=== PATIENT | female | born 1975 | race Hispanic/Latino ===

== ENCOUNTER → 2024-02-29 | Day surgery (SDC) | payer BC ==
[~2024-02-29] MED LIST: ACETAMINOPHEN 1000 MG/100 ML IV ONE; ALLERGY SHOTS SC; ATORVASTATIN CA20 MG PO; BUPIVACAINE HCL 0.5% INJ 30 ML VIAL INJ ONE; DEXAMETHASONE SOD PHOS INJ 4 MG/ML SDV ONE; DEXMEDETOMIDINE HCL 200 MCG/2 ML VIAL ONE; FAMOTIDINE 20 MG/2 ML VIAL IV ONE; FENTANYL CITRATE/PF 100MCG/2 ML INJ ONE; KETOROLAC TROMETHAMINE 30 MG/ML VIAL ONE; LIDOCAINE HCL 2% LOCAL INJ 5 ML SDV VIAL INJ ONE; MELOXICAM7.5 MG PO; MIDAZOLAM HCL 2 MG/2 ML VIAL ONE; NEOSTIGMINE 1 MG/ML 10ML VIAL ONE; ONDANSETRON HCL INJ 2MG/ML 2ML 2 MG/ML VIAL ONE; PROPOFOL IV EMULSION 10 MG/ML 20 ML VIAL ONE; SEVOFLURANE INHAL SOLN 250 ML PEN BTL ONE; TYLENOL325 MG PO; ZYRTEC10 MG PO
[2024-02-29] MEDS: LACTATED RINGER'S 1,000 ML ONE (11:48)
[2024-02-29] MEDS: CLINDAMYCIN 600MG / 50ML 50 ML IV ONE (11:49)
[2024-02-29] MEDS: FENTANYL CITRATE/PF 100MCG/2 ML INJ IV ONE (14:30)
[2024-02-29] MEDS: HYDROCODONE/APAP 5MG-325MG TAB ONE (15:28)
[2024-02-29 16:15] VITALS: BP 28/89; PULSE 71; RESP 18; O2SAT 99
== END | disposition home or self-care (01) ==
LOC: OR 10:55
PROVIDERS: ATTEND Podiatrist Foot & Ankle Surgery
DX: M72.2 Plantar fascial fibromatosis (principal); M77.31 Calcaneal spur, right foot; S93.691A Other sprain of right foot, initial encounter; M66.871 Spontaneous rupture of other tendons, right ankle and foot; S93.431A Sprain of tibiofibular ligament of right ankle, initial encounter; E78.5 Hyperlipidemia, unspecified; X58.XXXA Exposure to other specified factors, initial encounter; Z88.0 Allergy status to penicillin; Z88.8 Allergy status to other drugs, medicaments and biological substances; Z79.1 Long term (current) use of non-steroidal anti-inflammatories (NSAID); Z79.899 Other long term (current) drug therapy
CPT/HCPCS: 27698; 28086; 28119; 76000; C1713; C1762; J0131; J1100; J1885; J2001; J2250; J2405; J2704; J2710; J3010; J7121